=== PATIENT | female | born 1990 | race Caucasian/White ===

== ENCOUNTER 2021-03-05 17:54 | Emergency (ER) | payer OTHER, SELFPAY ==
--- NOTE | ~2021-03-05 | XR_ITS ---
EXAMINATION: XR forearm LT 2V EXAM DATE: 03/05/2021 18:52 INDICATION: Dog bite, wounds. TECHNIQUE: Left forearm frontal and lateral projections obtained and reviewed. There is no prior ken dy for comparison. FINDINGS: Swelling overlying the forearm with multiple foci of gas extending along the fascial plane s. There are no acute fractures identified. No radiopaque foreign bodies identified. IMPRESSION: Swelling and superficial emphysema. Reviewed, dictated and finalized at location A. ECTIONS COUNSELOR
--- NOTE | ~2021-03-05 | XR_ITS ---
EXAMINATION: XR hand RT min 3V EXAM DATE: 03/05/2021 18:52 INDICATION: Dog bite, deep wounds. TECHNIQUE: Right hand frontal, lateral and oblique projections obtained and reviewed. There is no pr ior study for comparison. FINDINGS: There is tiny sliver-like ossific density adjacent to the right 1st metacarpal head on the oblique projection, finding indicated. Uncertain if this could be osseous injury, indicated the need for prophylactic antibiotics; check for laceration in this location. No other suspicious findings. IMPRESSION: Clinical correlation for tiny sliver-like density as above. Reviewed, dictated and finalized at location A. WARE DEVELOPMENT COORDINATOR
[2021-03-05 18:06] VITALS: BP 95/57; PULSE 66; RESP 16; TEMP 36.1; O2SAT 99
--- NOTE | 2021-03-05 18:21 | ED.ANIMALBIT ---
HPI - Animal Bite General Chief Complaint: Animal Bite Stated Complaint: Dog bite Time Seen by Provider: 03/05/21 18:15 Source: patient Mode of arrival: ambulatory Limitations: no limitations History of Present Illness HPI narrative: This is a 30 year old female that presents to the ER for dog bite sustained just prior to arrival. Reports she was trying to get a popsicle stick out of the dogs mouth. Reports her dog bit her on the bilateral arms and forearms. She is unsure of her last tetanus vaccine. Her dog is up to date on vaccinations. Reports decreased ROM due to pain. Denies numbness. Related Data Allergies Allergy/AdvReac Type Severity Reaction Status Date / Time No Known Allergies Allergy Verified 03/05/21 18:09 Review of Systems Review of Systems: CONSTITUTIONAL: Denies fever SKIN: Reports laceration MUSCULOSKELETAL: Reports joint pain, and myalgia. NEUROLOGIC: Denies numbness All systems reviewed & are unremarkable except as noted in HPI and below PMFSH Past Medical History Medical History (Updated 03/05/21 @ 19:58 by Uyen Burciaga PA-C) History of anxiety Social History Social History (Updated 03/05/21 @ 18:24 by Uyen Burciaga PA-C) Smoking status: Never smoker Exam Narrative: GENERAL: Well-appearing, well-nourished, and in no acute distress. HEAD: Normocephalic, atraumatic. EYES: EOMI. EXTREMITIES: Normal range of motion. No edema. SKIN: Warm, dry, no rash. NEURO: No focal deficits. Alert and oriented x3. PSYCH: Normal mood and affect Course Vital Signs Vital signs: Vital Signs Temperature 97 F L 03/05/21 18:06 Pulse Rate 66 03/05/21 18:06 Respiratory Rate 16 03/05/21 18:06 Blood Pressure 95/57 L 03/05/21 18:06 Pulse Oximetry 99 03/05/21 18:06 Temperature 97 F L 03/05/21 18:06 Pulse Rate 66 03/05/21 18:06 Respiratory Rate 16 03/05/21 18:06 Blood Pressure 95/57 L 03/05/21 18:06 Pulse Oximetry 99 03/05/21 18:06 Procedures Laceration Laceration 1: Date: 03/05/21 Time: 19:53 Site: hand Side (If applicable): right Size (cm): 2 Description: linear Local Anesthetic: lidocaine 1% and with epi Amount of anesthesia used (mL): 3 Pre-repair: wound explored and irrigated extensively ====== Skin Level ====== Skin layer closed with: steri strips ====== Subcutaneous Layer ====== ====== Muscle Layer ====== ====== Tendon Layer ====== Laceration 2: Date: 03/05/21 Time: 19:54 Site: upper extremity Side (If applicable): left Size (cm): 2 Description: linear Depth: simple, single layer Pre-repair: irrigated extensively ====== Skin Level ====== Skin layer closed with: steri strips ====== Subcutaneous Layer ====== ====== Muscle Layer ====== ====== Tendon Layer ====== MDM - Animal Bite MDM Narrative Medical decision making narrative: Patient presents the emergency department for dog bite sustained just prior to arrival. Patient is neurovascularly intact. Wounds were thoroughly irrigated. Covered with Steri-Strips and bandages. Left forearm x-ray shows swelling and superficial emphysema, likely due to puncture wound on the forearm. Right hand x-ray shows possible sliver-like density adjacent to the right first metacarpal head. No obvious foreign bodies on exam. Patient was updated on tetanus. She will be started on oral antibiotics. Was instructed on wound care. She is to follow-up with primary care doctor. She was given warnings to return to the ER Imaging Data Radiologist's impression: ITS Impressions Hand X-Ray 03/05/21 18:57 IMPRESSION: Clinical correlation for tiny sliver-like density as above. Forearm X-Ray 03/05/21 19:01 IMPRESSION: Swelling and superficial emphysema. Critical Care Time Critical Care Time Critical Care Time: No Discha
[2021-03-05] MEDS: HYDROcodone/acetaminophen (*CRX) 5-325 MG TABLET 1 TAB PO (18:31)
[2021-03-05] MEDS: TETANUS,DIPHTHERIA,AC PERTUSSIS ADULT (0.5 ML) BOOSTRIX IM (18:31)
[2021-03-05] MEDS: LORazepam (*CRX) 1 MG TABLET PO (19:19)
[2021-03-05] MEDS: AMOXICILLIN/CLAVULANATE K 875-125 MG TAB 1 TABLET PO (19:21)
[2021-03-05 20:05] VITALS: BP 139/86; PULSE 88; RESP 16; O2SAT 97
== END 2021-03-05 20:10 | disposition home or self-care (01) ==
PROVIDERS: Emergency Provider Emergency Medicine; PCP Family Medicine
DX: S51.852A Open bite of left forearm, initial encounter (principal); S51.851A Open bite of right forearm, initial encounter; W54.0XXA Bitten by dog, initial encounter; Z23 Encounter for immunization
CPT/HCPCS: 73090; 73130; 90471; 90715; 99283; A9270

== ENCOUNTER 2021-11-20 08:06 | Emergency (ER) | payer OTHER, SELFPAY ==
--- NOTE | ~2021-11-20 | US_ITS ---
EXAMINATION: US OB <=14 wk fetus w TV DATE: 11/20/2021 10:07 INDICATION: Vaginal bleeding during first trimester TECHNIQUE: Real-time pelvic transabdominal and transvaginal ultrasound was performed. COMPARISON: None. FINDINGS: The uterus measures 9.7 x 6.5 x 5.1 cm. There is an intrauterine gestational sac. The feta l pole is not yet identified. A nabothian cysts are noted in the cervix. The mean sac diameter measur es 1.5 cm , which correlates with an estimated gestational age of 6 weeks and 2 day(s) (+/-) 4 day(s) . The right ovary measures 3.1 x 2.2 x 2.3 cm. The left ovary measures 5.1 x 3.8 x 3.8 cm and contains a 3.2 cm cyst. There is normal vascular flow in the ovaries. There is small amount of free fluid in t he pelvis. IMPRESSION: 1. Live intrauterine with an estimated gestational age of 6 weeks and 2 day(s) (+/-) 4 day( s) and an estimated delivery date of 07/14/2022 based on mean sac diameter. pole not yet visuali zed. Reviewed, dictated and finalized at location A. IMPRESSION: 1. Live intrauterine with an estimated gestational age of 6 weeks and 2 day(s) (+/-) 4 day(s) and an estimated delivery date of 07/14/2022 based on m quin sac diameter. pole not yet visualized.
[2021-11-20 08:09] VITALS: BP 100/58; PULSE 64; RESP 16; TEMP 36.4; O2SAT 100
[2021-11-20 08:20] VITALS: BP 108/69; PULSE 57; RESP 16; O2SAT 98
[2021-11-20 08:45] VITALS: BP 103/67; PULSE 51; RESP 16; O2SAT 98
[2021-11-20 08:47] LABS: Basophils Percent Auto 0.2 % (0.2-1.2); Eosinophils Percent Auto 0.5 % (0-4.4); Hemoglobin 13.2 g/dL (12.0-15.0); Immature Granulocyte Absolute 0.02 K/mm3 (0.00-0.031); Immature Granulocyte Percent A 0.2 % (0-0.5); Lymphocytes Absolute Auto 2.04 K/mm3 (0.9-3.2); Lymphocytes Percent Auto 24.5 % (18.3-44.2); Mean Corpuscular Hemoglobin 31.1 pg (26-34); Mean Corpuscular Volume 94.3 fl (80-100); Mean Platelet Volume 12.7 fl (7.4-10.4); Monocytes Absolute Auto 0.5 K/mm3 (0.1-0.6); Monocytes Percent Auto 5.9 % (2.6-8.5); Neutrophils Absolute Auto 5.7 K/mm3 (1.3-6.7); Neutrophils Percent Auto 68.7 % (45.5-73.1); Platelet Count Result 200 k/mm3 (150-375); Red Blood Count 4.24 M/mm3 (4.2-5.4); Red Cell Distribution Width 13.7 % (11.5-14.5); White Blood Count 8.3 K/mm3 (4.5-10.0)
--- NOTE | 2021-11-20 09:04 | PC.NURSE ---
Pt to US
[2021-11-20 09:05] LABS: Anion Gap 9 mmol/L (8-16); Blood Urea Nitrogen 8 mg/dL (7-17); Calcium 9.1 mg/dL (8.4-10.2); Carbon Dioxide 21 mmol/L (22-30); Chloride 105 mmol/L (98-107); Estimated Glomerular Filt Rate > 60; Glucose 86 mg/dL (65-110); Potassium 4.4 mmol/L (3.4-5.0); Sodium 135 mmol/L (137-145)
[2021-11-20 10:46] VITALS: BP 121/63; PULSE 52; RESP 18; O2SAT 96
--- NOTE | 2021-11-20 10:54 | ED.GENADULT ---
HPI - General Adult General Chief complaint: Vaginal Bleeding Stated complaint: cramping, spotting, 6-7 weeks preg Time Seen by Provider: 11/20/21 08:25 History of Present Illness HPI narrative: Patient is a 31-year-old female who presents ER with vaginal spotting. Began early this morning. Patient reports she is 6-7 weeks in gestation. LMP 10/11/2021. Known to be O+ on her blood type. No urinary frequency urgency or dysuria. She does have an OB she can follow-up with but has not had an ultrasound. Related Data Allergies Allergy/AdvReac Type Severity Reaction Status Date / Time No Known Allergies Allergy Verified 03/05/21 18:09 Review of Systems Review of Systems: All systems reviewed & are unremarkable except as noted in HPI and below Constitutional: Constitutional: Denies chills and Denies fever(s) ENT: Denies nasal congestion and Denies sore throat Cardiovascular: Cardiovascular: Denies chest pain, Denies radiating jaw, neck or arm pain and Denies slow heart rate Gastrointestinal: Gastrointestinal: Denies abdominal pain, Denies nausea and Denies vomiting Genitourinary: Genitourinary: Reports abnormal vaginal bleeding, Denies nocturia, Denies pelvic pain, Denies flank pain and Denies vaginal discharge PMFSH Past Medical History Medical History (Updated 11/20/21 @ 11:10 by Ty Lipscomb MD) Depression History of anxiety Surgical History Surgical History (Updated 11/20/21 @ 11:06 by Ty Lipscomb MD) History of D&C Social History Social History (Updated 03/05/21 @ 18:24 by Uyen Burciaga PA-C) Smoking status: Never smoker Exam Narrative: GENERAL: Well-appearing, well-nourished, and in no acute distress. HEAD: Normocephalic, atraumatic. EYES: PERRL and EOMI. CHEST: Clear to auscultation. No respiratory distress. HEART: Regular rate and rhythm. Normal peripheral pulses. ABDOMEN: Soft, nontender, nondistended. : Normal external genitalia. Cervix normal in appearance and closed. No blood noted. Physiologic discharge noted. EXTREMITIES: Normal range of motion. No edema. SKIN: Warm, dry, no rash. NEURO: Alert and oriented x3. PSYCH: Normal mood and affect. Course Course Emergency Course: Patient is seeing an individual in Dr. Farley's old office in [place]. Patient has been informed of results. This will be labeled a threatened miscarriage due to the bleeding. No need for RhoGAM. Vital Signs Vital signs: Vital Signs Temperature 97.6 F 11/20/21 08:09 Pulse Rate 64 11/20/21 08:09 Respiratory Rate 16 11/20/21 08:09 Blood Pressure 100/58 L 11/20/21 08:09 Pulse Oximetry 100 11/20/21 08:09 Oxygen Delivery Room Air 11/20/21 08:09 Temperature 97.6 F 11/20/21 08:09 Pulse Rate 52 L 11/20/21 10:46 Respiratory Rate 18 11/20/21 10:46 Blood Pressure 121/63 11/20/21 10:46 Pulse Oximetry 96 11/20/21 10:46 Oxygen Delivery Room Air 11/20/21 08:09 Medical Decision Making Vital Signs Vital Signs: Vital Signs Temperature 97.6 F 11/20/21 08:09 Pulse Rate 64 11/20/21 08:09 Respiratory Rate 16 11/20/21 08:09 Blood Pressure 100/58 L 11/20/21 08:09 Pulse Oximetry 100 11/20/21 08:09 Oxygen Delivery Room Air 11/20/21 08:09 Temperature 97.6 F 11/20/21 08:09 Pulse Rate 52 L 11/20/21 10:46 Respiratory Rate 18 11/20/21 10:46 Blood Pressure 121/63 11/20/21 10:46 Pulse Oximetry 96 11/20/21 10:46 Oxygen Delivery Room Air 11/20/21 08:09 Lab Data Result diagrams: 11/20/21 08:40 11/20/21 08:40 Labs: Lab Results 11/20/21 11/20/21 11/20/21 Range/Units 08:40 08:40 08:40 WBC 8.3 (4.5-10.0) K/mm3 RBC 4.24 (4.2-5.4) M/mm3 Hgb 13.2 (12.0-15.0) g/dL Hct 40.0 (37.0-47.0) % MCV 94.3 (80-100) fl MCH 31.1 (26-34) pg MCHC 33.0 (32-36) g/dl RDW 13.7 (11.5-14.5) % Plt Count 200 (150-375) k/mm3 MPV 12.7 H (7.4-10.4) fl Imm
[2021-11-20 11:52] VITALS: BP 110/60; PULSE 52; RESP 18; O2SAT 100
== END 2021-11-20 11:55 | disposition home or self-care (01) ==
PROVIDERS: Emergency Provider Emergency Medicine; PCP Family Medicine
DX: O20.0 Threatened abortion (principal); Z3A.01 Less than 8 weeks gestation of pregnancy
CPT/HCPCS: 36415; 76801; 76817; 80048; 81025; 84702; 85025; 85461; 99284

== ENCOUNTER 2021-12-01 14:30 | Emergency (ER) | payer OTHER, SELFPAY ==
--- NOTE | ~2021-12-01 | US_ITS ---
EXAMINATION: US pelvic complete DATE: 12/01/2021 16:44 INDICATION: Vaginal bleeding during first trimester TECHNIQUE: Multiple transabdominal and endovaginal sonographic images of the pelvis were obtained. COMPARISON: None. FINDINGS: The anteverted uterus measures 9.3 x 5.3 x 7.6 cm. There is an intrauterine gestational sac. A yolk s ac and pole are identified. The crown rump length measures 10 mm, which correlates with an juvencio mated gestational age of 7 weeks and 0 days. heart motion is identified measuring 135 beats per minute (bpm) by M-mode Doppler. Cervical length measures 5.2 cm which is normal. The right ovary measures 3.1 x 2.7 x 2.7 cm. The left ovary measures 2.2 x 3.8 x 3.6 cm. 3.8 cm anech oic likely corpus luteum cyst in the left ovary. There is no free fluid in the pelvis. IMPRESSION: 1. Single living fetus with heart rate of 135 bpm. 2. Gestational age by ultrasound of 7 weeks 0 day(s) +/- 4 day(s) with ultrasound estimated date of delivery (VENU) of 07/20/2022. Reviewed, dictated and finalized at location A. IMPRESSION: 1. Single living fetus with heart rate of 135 bpm. 2. Gestational age by ultrasound of 7 weeks 0 day(s) +/- 4 day(s) with ultraso und estimated date of delivery (VENU) of 07/20/2022.
[2021-12-01 14:49] VITALS: BP 107/57; PULSE 56; RESP 16; TEMP 37.1; O2SAT 100
[2021-12-01 15:01] LABS: Basophils Percent Auto 0.2 % (0.2-1.2); Eosinophils Percent Auto 0.3 % (0-4.4); Hemoglobin 13.9 g/dL (12.0-15.0); Immature Granulocyte Absolute 0.04 K/mm3 (0.00-0.031); Immature Granulocyte Percent A 0.3 % (0-0.5); Lymphocytes Absolute Auto 2.68 K/mm3 (0.9-3.2); Lymphocytes Percent Auto 22.5 % (18.3-44.2); Mean Corpuscular HGB Conc 33.9 g/dl (32-36); Mean Corpuscular Hemoglobin 31.2 pg (26-34); Mean Corpuscular Volume 92.1 fl (80-100); Mean Platelet Volume 12.3 fl (7.4-10.4); Monocytes Absolute Auto 0.6 K/mm3 (0.1-0.6); Monocytes Percent Auto 4.6 % (2.6-8.5); Neutrophils Absolute Auto 8.6 K/mm3 (1.3-6.7); Neutrophils Percent Auto 72.1 % (45.5-73.1); Platelet Count Result 187 k/mm3 (150-375); Red Blood Count 4.45 M/mm3 (4.2-5.4); Red Cell Distribution Width 13.3 % (11.5-14.5); White Blood Count 11.9 K/mm3 (4.5-10.0)
[2021-12-01 15:30] LABS: Platelet Estimate Adequate (Adequate)
[2021-12-01 15:31] LABS: Ovalocytes 1+ (NORMAL)
[2021-12-01 16:01] VITALS: BP 107/51; PULSE 50; RESP 18; O2SAT 98
--- NOTE | 2021-12-01 16:20 | ED.PREGNANCY ---
HPI - General Chief complaint: Vaginal Bleeding Stated complaint: 8 weeks , bleeding Time Seen by Provider: 12/01/21 15:36 History of Present Illness HPI Narrative: 31-year-old female who is a G8, P1 and 8 weeks presents to the emergency room for evaluation of vaginal bleeding, suprapubic cramping, low back pain. 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 Reports several vaginal blood clots this morning and last night. Patient denies any known injury or trauma. Related Data Allergies Allergy/AdvReac Type Severity Reaction Status Date / Time No Known Allergies Allergy Verified 03/05/21 18:09 Review of Systems Review of Systems: CONSTITUTIONAL: Denies fever, chills, or sweats. EYES: Denies visual changes, redness, or discharge. ENT: Denies rhinorrhea, congestion, sore throat, or otalgia. CARDIOVASCULAR: Denies chest pain, palpitations, or edema. RESPIRATORY: Denies cough or dyspnea. GASTROINTESTINAL: Denies abdominal pain, nausea, vomiting, or diarrhea. GENITOURINARY: Reports vaginal bleeding SKIN: Denies rash or itching. MUSCULOSKELETAL: Denies back pain, joint pain, or myalgia. NEUROLOGIC: Denies headache, numbness, dizziness, or weakness. PSYCHIATRIC: Denies anxiety or depression. PMFSH Past Medical History Medical History Depression History of anxiety Surgical History Surgical History History of D&C Social History Social History Smoking status: Never smoker Exam Narrative: GENERAL: Well-appearing, well-nourished, no physical limitations, and in no acute distress. HEAD: Normocephalic, atraumatic. EYES: Conjunctivae normal, PERRLA and EOMI. CHEST: Clear to auscultation. No respiratory distress. No wheezes rales or rhonchi. No tenderness. HEART: Regular rate and rhythm. No murmur heard. Normal peripheral pulses. ABDOMEN: Soft, suprapubic tenderness, nondistended, normal active bowel sounds. : BACK: No CVA tenderness EXTREMITIES: Normal range of motion. No edema. No clubbing or cyanosis SKIN: Warm, dry, no rash. No noted wounds NEURO: No focal deficits. Alert and oriented x3. MAEW. CN's II-XI intact bilaterally, normal gait PSYCH: Cooperative. Normal mood and affect. Course Vital Signs Vital signs: Vital Signs Temperature 37.1 C 12/01/21 14:49 Pulse Rate 56 L 12/01/21 14:49 Respiratory Rate 16 12/01/21 14:49 Blood Pressure 107/57 L 12/01/21 14:49 Pulse Oximetry 100 12/01/21 14:49 Oxygen Delivery Room Air 12/01/21 14:49 Temperature 37.1 C 12/01/21 14:49 Pulse Rate 50 L 12/01/21 16:01 Respiratory Rate 18 12/01/21 16:01 Blood Pressure 107/51 L 12/01/21 16:01 Pulse Oximetry 98 12/01/21 16:01 Oxygen Delivery Room Air 12/01/21 16:01 MDM - OB/Uterine Contractions MDM Narrative Medical decision making narrative: 31-year-old female who is a G8, P1 presents the emergency room for evaluation of vaginal bleeding. Ultrasound shows 1 live single fetus with a heart rate of 135. UA shows +2 blood. Likely that the vaginal bleeding patient noticed was coming from the bladder. We will cover the patient for possible UTI and have her follow-up with PRESENTATION MANAGER next week. Lab Data Result diagrams: 12/01/21 14:54 Labs: Lab Results 12/01/21 12/01/21 12/01/21 Range/Units 14:54 14:54 14:54 WBC 11.9 H (4.5-10.0) K/mm3 RBC 4.45 (4.2-5.4) M/mm3 Hgb 13.9 (12.0-15.0) g/dL Hct 41.0 (37.0-47.0) % MCV 92.1 (80-100) fl MCH 31.2 (26-34) pg MCHC 33.9 (32-36) g/dl RDW 13.3 (11.5-14.5) % Plt Count 187 (150-375) k/mm3 MPV 12.3 H (7.4-10.4) fl Immature Gran % (Auto) 0.3 (0-0.5) % Neut % (Auto) 72.1 (45.5-73.1) % Lymph % (Auto) 22.5 (18.3-44.2) % Moffat % (Auto) 4.6 (2.6-8.5) % Eos % (Auto)
[2021-12-01 17:38] LABS: Appearance Urine Slightly Cloudy (Clear); Bilirubin Urine Negative (Negative); Blood Urine 2+ (Negative); Color Urine Yellow (Yellow); Glucose Urine UA Negative (Negative); Ketones Urine 1+ mg/dL (Negative); Leukocyte Esterase Ur Negative LEU/UL (Negative); Nitrate Urine Negative (Negative); Protein Urine Negative (Negative); Specific Grav Ur 1.015 (1.001-1.035); Urobilinogen Urine 0.2 mg/dL (<2.0); pH Urine 5.5 (5.0-9.0)
[2021-12-01 17:41] LABS: Bacteria Urine Trace /hpf; Mucus Urine Rare /lpf; RBC Urine 0-2 /hpf (0-2); Squamous Epithelial Cell Urine Many /hpf (Few); WBC Urine 0-3 /hpf
[2021-12-01 17:43] LABS: Add Urine Microscopic? YES
== END 2021-12-01 18:31 | disposition home or self-care (01) ==
PROVIDERS: Emergency Medicine; Emergency Provider Nurse Practitioner Family; PCP Family Medicine
DX: O26.891 Other specified pregnancy related conditions, first trimester (principal); R31.9 Hematuria, unspecified; Z3A.01 Less than 8 weeks gestation of pregnancy
CPT/HCPCS: 36415; 76856; 81001; 84702; 85025; 85461; 99284

== ENCOUNTER 2024-05-12 12:45 | Emergency (ER) | payer BC, SELFPAY ==
[2024-05-12 12:52] VITALS: BP 107/63; PULSE 89; RESP 15; TEMP 36.7; O2SAT 98
[2024-05-12] MEDS: SODIUM CHLORIDE 0.9% IV 1,000 ML 999 ML IV CONT (14:36)
[2024-05-12] MEDS: METOCLOPRAMIDE HCL INJ 10 MG/2 ML VIAL IV PUSH (14:37)
[2024-05-12] MEDS: diphenhydrAMINE HCl INJ 50 MG/ML VIAL 25 MG IV PUSH (14:38)
[2024-05-12] MEDS: KETOROLAC 30 MG/ML VIAL (*BKC) IV PUSH (14:39)
--- OUTSIDE RECORDS SUMMARY | 2024-05-12 15:10 | XMS_ITS | Clinical Summary ---
Author Organization [facility] HealthCare Care Team Providers Care Loading Inspector Name Role Phone Aung Manriquez MD Primary Care Provider [phone] Allergies No known active allergies Medications clonazePAM (KlonoPIN) 0.5 mg tablet clonazepam 0.5 mg tablet TAKE 1 TABLET BY MOUTH NEEDED FOR 30 DAYS Active FLUoxetine (PROzac) 40 mg capsule fluoxetine 40 mg capsule TAKE 1 CAPSULE BY MOUTH EVERY DAY IN THE MORNING Active lamoTRIgine (LaMICtal) 25 mg tablet lamotrigine 25 mg tablet TAKE 2 TABLETS EVERY DAY BY ORAL ROUTE IN THE EVENING FOR 30 DAYS. Active topiramate (TOPAMAX) 25 mg tabletIndication s:Chronic migraine without aura without status migrainosus, not intractable Take one tablet (25 mg) po bid for one week, then 2 tablets (50 mg ) po bid. 120 tablet 3 1 Active SUMAtriptan (IMITREX) 100 mg tabletIndication s:Migraine Take one tabet po q2h prn as soon as feel headache is coming. No more than 2 tablets in 24 hours. 9 tablet 3 1 Active Active Problems Problem Noted Date Diagnosed Date Chronic migraine without aur a without status migrainosus, not intractable 12/09/2020 Medical History Medical History Date Comments Migraine Family History Medical History Relation Name Comments No Known Problems Father No Known Problems Mother Relation Name Status Comments Father Mother Social History Tobacco Use Types Packs/Day Years Used Date Smoking Tobacco: Never Smokeless Tobacco: Never Personal Safety Answer Date Recorded Getting School Help Needed Not on file 05/16 Comments Unknown Sex and Gender Information Value Date Recorded Sex Assigned at Not on file Legal 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 Gender Identity Not on file Sexual Orientation Not on file Obstetrics History Last Filed Vital Signs Vital Sign Reading Time Taken Comments Blood Pressure 109/78 12/09/2020 9:19 AM CDT Pulse 72 12/09/2020 9:19 AM CDT Temperature - - Respiratory Rate - - Oxygen Saturation - - Inhaled Oxygen Concentration - - Weight 94.8 kg (209 lb) 12/09/2020 9:19 AM CDT Height 157.5 cm (5' 2 ) 12/09/2020 9:19 AM CDT Body Mass Index 38.23 12/09/2020 9:19 AM CDT Plan of Treatment Not on file Insurance [facility] Care Teams Loading Inspector Relationship Specialty Start Date End Date Aung Manriquez MD [address] [place] [id number] PCP - General Family Medicine 10/21/20
--- OUTSIDE RECORDS SUMMARY | 2024-05-12 15:10 | XMS_ITS | Continuity of Care Document ---
Author Organization [facility] Address [address] [place] [address] [place] [address] Phone Care Team Providers Care Callisthenics Instructor Name Role Phone Shay Danielson MD Unavailable Unavailable Allergies, Adverse Reactions, Alerts Substance Reaction Status Criticality No Known Allergies Active No Inform ation Procedures Procedure Date OFFICE/OUTPATIENT VISIT, EST OFFICE/OUTPATIENT VISIT, EST OFFICE/OUTPATIENT VISIT, [facility] Advance Directives Directive Yes / No Effective Date File Name No Information Encounters Encounter Description Practice Location Reason(s) For Visit Diagnoses Date Provider Providers Copied on Encounter [facility], [address] [place], [place], [id number], [place] tel:[phone] [facility] No Information [address] Jagjit [address]. [address], [place], [place], [id number] , [place]. tel:[phone] Referring Provider: Shay Danielson, [address] [facility] [address] [place], [place], [id number]. tel:[phone] OFFICE/OUTPA TIENT VISIT, EST [facility], [address] [place], [place], [id number], [place] tel:[phone] [facility] headache (chief complaint) chest pain (chief complaint) LFT (chief complaint) vitamin D (chief complaint) Dietary surveillance and counselingHeadacheU nspecified disorder of liverUnspecified vitamin d deficiency 5 Jagjit Day. [address], [address], [place], [place], [id number] , [place]. tel:[phone] Referring Provider: Alex Forrester [address], [place], [place], [id number]. tel:[phone] OFFICE/OUTPA TIENT VISIT, [facility], [address] [place], [place], [id number], tel:[phone] [facility] sinus (chief complaint) headache (chief complaint) anxiety (chief complaint) chest pain (chief complaint) Chest Pain, UnspecifiedOther acute sinusitisHeadacheGe neralized anxiety disorderDietary surveillance and counseling [address] Jagj[address] [facility] [place] [id number] , [place]. tel:[phone] Referring Provider: [facility] [place], [place], [id number]. tel:[phone] OFFICE/OUTPA TIENT VISIT, [facility] [place], [address] [place], [place], [id number], tel:[phone] [facility] physical (chief complaint) Dietary surveillance and counselingRoutine Medical ExamRoutine Medical ExamHeadacheGeneral ized anxiety disorder [address] Jagj[address] Day[address] [facility] [place] [id number] , [place]. tel:[phone] Family History Family Member Type Diagnosis Age At Onset Father Problem (finding) Alive and well Mother Problem (finding) thyroid Brother Problem (finding) Alive and well Payers Payer name Insurance type Covered constitution party ID Authoriza tion(s) No Information Social History Type Description Quantity Date Captured Comments Sex Female Smoking Status No Information Chief Complaint And Reason For Visit No Information Plan Of Treatment Date Type Action Status Goal Tobacco cessation counseling completed Goal Tobacco cessation counseling completed Goal Tobacco cessation counseling completed Referral Ordered: CARDIOVASCULAR STRESS TEST ordered Referral Ordered: MRI BRAIN W/O DYE ordered History Of Present Illness Encounter Date Complaint History Of Prese nt Illness No Information Instructions Date Instruction Additional Infor mation Decrease caloric intake Related to Dietary surveillance counseling Physical activity counseling Rel ated to Dietary surveillance counseling Decrease caloric intake Related to Dietary surveillance counseling Physical activity counseling Rel ated to Dietary surveillance counseling Decrease caloric intake Related to Dietary surveillance counseling Dietary counseling Related to Di etary surveillance counseling Assessments Type Assessment Date No Information
--- OUTSIDE RECORDS SUMMARY | 2024-05-12 15:10 | XMS_ITS | Clinical Summary ---
Author Organization [facility] System Address [address] [place] [address] Care Team Providers Care Supervisor Parachute Manufacturing Name Role Phone [place] Melissa CALVIN Primary Care Provider [phone] Jai Aldrich MD Unavailable [phone] Allergies No known active allergies Medications folic acid 1 MG tablet 11/11/2018 Active cyanocobalamin 1000 MCG/ML injection Inject into the muscle monthly. Active fluoxetine 20 MG capsule Take 1 capsule by mouth daily. 05/30/2019 Active Active Problems Problem Noted Date Diagnosed Date Migraine 02/08/2017 Family History Medical History Relation Comments Heart Attack Paternal Grandfather Stroke Paternal Grandfather Stroke Paternal Grandmother Relation Status Comments Paternal Grandfather Paternal Grandmother Social History Tobacco Use Types Packs/Day Years Used Date Smoking Tobacco: Former Cigarettes Smokeless Tobacco: Never Tobacco Cessation:Counseling Given: No Alcohol Use Standard Drinks/Week Comments No 0 (1 standard drink = 0.6 oz pur e alcohol) PHQ-2 Answer Date Recorded PHQ-2 Score 1 03/02/2019 Comments No Sex and Gender Information Value Date Recorded Sex Assigned at Not on file Legal Sex Female 2:41 PM CDT Gender Identity Not on file Sexual Orientation Not on file Occupation Industry Job Start Date Job End Date Not on file Not on file Not on file Not on file Last Filed Vital Signs Vital Sign Reading Time Taken Comments Blood Pressure 80/50 06/09/2019 12:48 PM CDT Pulse 68 06/09/2019 12:48 PM CDT Temperature 36.3 C (97.4 F) 06/09/2019 12:48 PM CDT Respiratory Rate 20 06/09/2019 12:4 8 PM CDT Oxygen Saturation 91% 06/09/2019 12: 48 PM CDT Has on acrylic nails. Inhaled Oxygen Concentration - - Weight 96.9 kg (213 lb 9.6 oz) 06/09/2019 12:48 PM CDT Height 157.5 cm (5' 2 ) 06/09/2019 12:4 8 PM CDT Body Mass Index 39.07 06/09/2019 12:48 PM CDT Plan of Treatment Health Maintenance Due Date Last Done Comments Cervical Cancer Screening Pa p Smear (Age 30 to 64) Every 3 Years 1990 Annual Physical 1993 Hepatitis C 2008 DTaP, Tdap and Td Vaccines ( 1 - Tdap) 2009 Hepatitis B Vaccines (1 of 3 - 19+ 3-dose series) 2009 Cervical Cancer Screening Pa p with HPV Testing (Age 30 to 64) Every 5 Years 2020 Cervical Cancer Screening with HPV 2020 COVID-19 Vaccine ( - 2023-2 5 season) 2023 Influenza Adult (#1) 2023 HPV Vaccines Aged Out No longer eligi ble based on patient's age to complete this topic Meningococcal B Vaccine Aged Out No l onger eligible based on patient's age to complete this topic Meningococcal Vaccine Aged Out No danie temitope eligible based on patient's age to complete this topic Pneumococcal Vaccine: Pediat rics (0 to 5 Years) and At-Risk Patients (6 to 64 Years) Aged Out No longer eligible b ased on patient's age to complete this topic RSV Immunizations Under 20 Months Aged Out No longer eligible based on patient's age to complete this topic Insurance Care Teams Supervisor Parachute Manufacturing Relationship Specialty Start Date End Date Melissa Reynoso NP [address] [address] PCP - General FAMILY PRACTICE 01/31/17 Jai Aldrich MD [facility] [address] [place] [address] Pease Deck Engine Operator CARDIOVASCULAR DISEASE 02/06/17
--- OUTSIDE RECORDS SUMMARY | 2024-05-12 15:10 | XMS_ITS | Referral Summary ---
Author Organization [facility] HealthCare Care Team Providers Care Yarn Skeins Examiner Name Role Phone Aung Manriquez MD Primary Care Provider [phone] Allergies No known active allergies Medications clonazePAM [...] a without status migrainosus, not intractable 12/09/2020 Social History Tobacco Use Types Packs/Day Years Used Date Smoking Tobacco: Never Smokeless Tobacco: Never Personal Safety Answer Date Recorded Getting School Help Needed Not on file 05/16 Comments Unknown Sex and Gender Information Value Date Recorded Sex Assigned at Not on file Legal Sex Female 10:24 AM GLOVE FORMER Gender Identity Not on file Sexual Orientation Not on file Last Filed Vital Signs [...] Plan of Treatment Not on file Insurance [facility] Care Teams Yarn Skeins Examiner Relationship Specialty Start Date End Date Aung Manriquez MD [facility] [place] [address] PCP - General Family Medicine 10/21/20
--- OUTSIDE RECORDS SUMMARY | 2024-05-12 15:10 | XMS_ITS | Encounter Summary ---
Author Organization [facility] System Address [address] [place] [address] Care Team Providers Care Toys And Games Hand Finisher Name Role Phone Angeles Melissa CALVIN Primary Care Provider [phone] Jai Aldrich MD Unavailable [phone] Encounter Details Date Type Department Care Team (Late st Contact Info) Description 03/16/2017 Abstract [facility] at [address] [address] Jc Vee [place] Social History Tobacco Use Types Packs/Day Years Used Date Smoking Tobacco: Every Day Cigarettes Smokeless Tobacco: Never Comments:smokes 4 cigarettes a day Alcohol Use Standard Drinks/Week Comments No 0 (1 standard drink = 0.6 oz pur e alcohol) Comments Unknown Sex and Gender Information Value Date Recorded Sex Assigned at Not on file Legal Sex Female 2:41 PM CDT Gender Identity Not on file Sexual Orientation Not on file Occupation Industry Job Start Date Job End Date Not on file Not on file Not on file Not on file documented as of this encounter Plan of Treatment Not on file documented as of this encounter Procedures Procedure Name Priority Date/Time Associated Diagnosis Comments CBC (OUTSIDE LAB) Routine 08/24/2016 BASIC METABOLIC PANEL Routine 08/24/2016 documented in this encounter Results * BASIC METABOLIC PANEL (08/24/2016) SODIUM S/P/B 140 POTASSIUM S/P/B 4.0 CO2 22 CHLORIDE S/P/B 107 GLUCOSE 93 mg/dL CALCIUM S/P/B 9.3 BUN 11 CREATININE S/P/B 0.70 0.5 - 1.0 EGFR NON-AFR. AMER. >60 <=90 08/24/2016 us Doc [facility] Abstract LABORATORY Final Result * CBC (OUTSIDE LAB) (08/24/2016) WBC 9.0 HGB 13.2 HCT 39.2 PLT 134 08/24/2016 us Doc [facility] Abstract LAB-OUTSIDE/ABSTRACTED Final Result documented in this encounter Visit Diagnoses Not on filedocumented in this encounter Care Teams Toys And Games Hand Finisher Relationship Specialty Start Date End Date Melissa Reynoso NP [address] [address] PCP - General FAMILY PRACTICE 01/31/17 Jai Aldrich MD [facility] [address] [place] [address] Shree Fish And Wildlife Technician CARDIOVASCULAR DISEASE 02/06/17 documented as of this encounter
--- NOTE | 2024-05-12 15:12 | ED.GENADULT ---
HPI - General Adult General Chief complaint: Eye Problems Stated complaint: blurry eyes Time Seen by Provider: 05/12/24 14:15 History of Present Illness HPI narrative: Patient is a 33-year-old female who presents ER with visual disturbance. Has history of migraines that causes her to have some blurred vision. She is also occasionally gets some flashes in her eyes. She has not been having some floaters. She has been taking her home migraine medication without improvement. No fevers or chills or sweats. No head injury. Reports photophobia. Headache is throbbing and mainly posterior. Related Data Allergies Allergy/AdvReac Type Severity Reaction Status Date / Time No Known Allergies Allergy Verified 05/12/24 14:33 Review of Systems Constitutional: Constitutional: Reports no additional constitutional complaints Eyes: Eyes: Reports no additional eye complaints Cardiovascular: Cardiovascular: Reports no additional cardiovascular complaints Respiratory: Respiratory: Reports no additional respiratory complaints PMFSH Past Medical History Medical History Depression History of anxiety Surgical History Surgical History History of D&C Social History Social History Smoking status: Never smoker Exam Narrative: GENERAL: Well-appearing, well-nourished, and in no acute distress. HEAD: Normocephalic, atraumatic. Eyes: PERRLA, EOMI ENT: Mucous membranes moist. CHEST: Clear to auscultation. No respiratory distress. HEART: Regular rate and rhythm. Normal peripheral pulses. EXTREMITIES: Normal range of motion. No edema. SKIN: Warm, dry, no rash. NEURO:Alert and oriented x3. PSYCH: Normal mood and affect. Course Course Emergency Course: Headache and vision improved with Reglan/Toradol/Benadryl and IV fluid. Has follow-up with her PCP tomorrow. Appropriate for discharge home. Visual acuities reviewed and without significant abnormality. Vital Signs Vital signs: Vital Signs Temperature 98.1 F 05/12/24 12:52 Pulse Rate 89 05/12/24 12:52 Respiratory Rate 15 05/12/24 12:52 Blood Pressure 107/63 05/12/24 12:52 Pulse Oximetry 98 05/12/24 12:52 Temperature 98.1 F 05/12/24 12:52 Pulse Rate 89 05/12/24 12:52 Respiratory Rate 15 05/12/24 12:52 Blood Pressure 107/63 05/12/24 12:52 Pulse Oximetry 98 05/12/24 12:52 Medical Decision Making Vital Signs Vital Signs: Vital Signs Temperature 98.1 F 05/12/24 12:52 Pulse Rate 89 05/12/24 12:52 Respiratory Rate 15 05/12/24 12:52 Blood Pressure 107/63 05/12/24 12:52 Pulse Oximetry 98 05/12/24 12:52 Temperature 98.1 F 05/12/24 12:52 Pulse Rate 89 05/12/24 12:52 Respiratory Rate 15 05/12/24 12:52 Blood Pressure 107/63 05/12/24 12:52 Pulse Oximetry 98 05/12/24 12:52 Discharge Plan Discharge Clinical Impression: Headache, migraine Patient Disposition: Home, Self-Care Condition: Stable Instructions: Migraine Headache (ED) Additional Instructions: Try to stay well hydrated at home. Please return to the emergency department if you develop worsening of your headache or a new headache which is severe, associated with vision changes, associated with neck stiffness or fever, or if it is different from any other headache that you have had before. Return to the emergency department if you develop numbness, weakness or tingling or problems with coordination, or if you develop severe nausea and vomiting and are unable to keep down fluids at home. Patient Language: Icelandic Prescriptions: No Action amoxicillin-pot clavulanate [Augmentin] 875-125 mg tablet 1 tablet PO Q12H 5 Days Qty: 10 0RF nitrofurantoin monohyd/m-cryst [Macrobid] 100 mg capsule 100 mg PO Q12H 5 Days Qty: 10 0RF Rx Instructions: must administer with a meal/food Follow-up/Referrals: UNKNOWN,DOCTOR [Primary Care Provider] - 1 Day
[2024-05-12 17:02] VITALS: BP 120/79; PULSE 72; RESP 16; TEMP 36.8; O2SAT 97
--- OUTSIDE RECORDS SUMMARY | 2024-05-12 17:11 | XMS_ITS | Continuity of Care Document ---
Author Organization [facility] Address [address] [place] [address] [place] [address] Phone Care Team Providers Care Solar Panel Installer Name Role Phone Shay Danielson MD Unavailable Unavailable Allergies, Adverse Reactions, Alerts Substance Reaction Status Criticality No Known Allergies Active No Inform ation Procedures Procedure Date OFFICE/OUTPATIENT VISIT, EST OFFICE/OUTPATIENT VISIT, EST OFFICE/OUTPATIENT VISIT, [facility] Advance Directives Directive Yes / No Effective Date File Name No Information Encounters Encounter Description Practice Location Reason(s) For Visit Diagnoses Date Provider Providers Copied on Encounter [facility], [address] [place], [id number], [place] tel:[phone] [facility] No Information [address] Jagjit Day. [address], [place], [place], [id number] , [place]. tel:[phone] Referring Provider: Shay Danielson, [address] [facility] [address] [place], [place], [id number]. tel:[phone] OFFICE/OUTPA TIENT VISIT, EST [facility], [address] [place], [id number], [place] tel:[phone] [facility] headache (chief complaint) chest pain (chief complaint) LFT (chief complaint) vitamin D (chief complaint) Dietary surveillance and counselingHeadacheU nspecified disorder of liverUnspecified vitamin d deficiency 5 Jagjit Day. [address], [place], [place], [id number] , [place]. tel:[phone] Referring Provider: Alex Forrester [address], [place], [place], [id number]. tel:[phone] OFFICE/OUTPA TIENT VISIT, [facility], [address] [place], [id number], tel:[phone] [facility] sinus (chief complaint) headache (chief complaint) anxiety (chief complaint) chest pain (chief complaint) Chest Pain, UnspecifiedOther acute sinusitisHeadacheGe neralized anxiety disorderDietary surveillance and counseling 5 [address] [facility] [place] [id number] , [place]. tel:[phone] Referring Provider: [facility] [place], [place], [id number]. tel:[phone] OFFICE/OUTPA TIENT VISIT, [facility], [address] [place], [place], [id number], tel:[phone] [facility] physical (chief complaint) Dietary surveillance and counselingRoutine Medical ExamRoutine Medical ExamHeadacheGeneral ized anxiety disorder 4 Jagj[address] [facility] [place] [address] , [place]. tel:[phone] Family History Family Member Type Diagnosis Age At Onset Father Problem (finding) Alive and well Mother Problem (finding) thyroid Brother Problem (finding) Alive and well Payers Payer name Insurance type Covered libertarian ID Authoriza tion(s) No Information Social History [...] Information Instructions Date Instruction Additional Infor mation Physical activity counseling Rel ated to Dietary surveillance counseling Decrease caloric intake Related to Dietary surveillance counseling Physical activity counseling Rel ated to Dietary surveillance counseling Decrease caloric intake Related to Dietary surveillance counseling Dietary counseling Related to Di etary surveillance counseling Decrease caloric intake Related to Dietary surveillance counseling Assessments Type Assessment Date No Information
--- OUTSIDE RECORDS SUMMARY | 2024-05-12 17:11 | XMS_ITS | Referral Summary ---
Author Organization [facility] HealthCare Care Team Providers Care Ambulette Driver Name Role Phone Aung Manriquez MD Primary Care Provider [phone] Allergies No known active allergies Medications clonazePAM [...] on file Legal Sex Female 10:24 AM POLISHER APPRENTICE Gender Identity Not on file Sexual Orientation [...] Plan of Treatment Not on file Insurance [facility] Care Teams Ambulette Driver Relationship Specialty Start Date End Date Aung Manriquez MD [facility] [place] [address] PCP - General Family Medicine 10/21/20
--- OUTSIDE RECORDS SUMMARY | 2024-05-12 17:11 | XMS_ITS | Encounter Summary ---
Author Organization [facility] Address [address] [place] [address] Care Team Providers Care Toy Stuffer Name Role Phone Angeles Melissa CALVIN Primary Care Provider [phone] Jai Aldrich MD Unavailable [phone] Encounter Details Date Type Department Care Team (Late st Contact Info) Description 03/16/2017 Abstract [facility] at [address] [address] Jc Vee [place] Social History Tobacco Use [...] on filedocumented in this encounter Care Teams Toy Stuffer Relationship Specialty Start Date End Date Melissa Reynoso NP [address] [address] PCP - General FAMILY PRACTICE 01/31/17 Jai Aldrich MD [facility] [address] [place] [address] Shree Bingo Worker CARDIOVASCULAR DISEASE 02/06/17 documented as of this encounter
--- OUTSIDE RECORDS SUMMARY | 2024-05-12 17:11 | XMS_ITS | Clinical Summary ---
Author Organization [facility] Address [address] [place] [address] Care Team Providers Care Drug Discovery Informatics Specialist Name Role Phone Angeles Melissa CALVIN Primary Care Provider [phone] Jai Aldrich MD Unavailable Allergies No known active allergies Medications folic [...] to complete this topic Insurance Care Teams Drug Discovery Informatics Specialist Relationship Specialty Start Date End Date Melissa Reynoso NP [address] [address] PCP - General FAMILY PRACTICE 01/31/17 Jai Aldrich MD [facility] [address] [place] [address] Melbeta Hydrochloric Area Supervisor CARDIOVASCULAR DISEASE 02/06/17
--- OUTSIDE RECORDS SUMMARY | 2024-05-12 17:11 | XMS_ITS | Clinical Summary ---
Author Organization [facility] HealthCare Care Team Providers Care Retail Branch Manager Name Role Phone Aung Manriquez MD Primary Care Provider [phone] Allergies No known active allergies Medications clonazePAM [...] on file Legal Sex Female 10:24 AM PALLET ASSEMBLER Gender Identity Not on file Sexual Orientation [...] Plan of Treatment Not on file Insurance [facility] Care Teams Retail Branch Manager Relationship Specialty Start Date End Date Aung Manriquez MD [address] [place] [id number] PCP - General Family Medicine 10/21/20
== END 2024-05-12 17:03 | disposition home or self-care (01) ==
PROVIDERS: Emergency Provider Emergency Medicine
DX: G43.909 Migraine, unspecified, not intractable, without status migrainosus (principal)
CPT/HCPCS: 96361; 96374; 96375; 99284; J1200; J1885; J2765; J7030